=== PATIENT | male | born 1955 | race Caucasian/White ===

== ENCOUNTER 2018-04-09 13:13 | Outpatient (REF) | payer MEDICARE, MEDICAID, SELFPAY ==
[2018-04-09 21:40] LABS: Microalb ug/mg Crea 83.5 ug/mg Cr
== END 2018-04-09 13:33 ==
LOC: NCHCN 13:13
PROVIDERS: PCP Internal Medicine; Visit Provider Internal Medicine
DX: E11.9 Type 2 diabetes mellitus without complications (principal); I25.10 Atherosclerotic heart disease of native coronary artery without angina pectoris; G89.29 Other chronic pain
CPT/HCPCS: 82043; 82570

== ENCOUNTER 2018-06-25 12:33 | Outpatient (REF) | payer MEDICARE, MEDICAID, SELFPAY ==
[2018-06-25 21:52] LABS: Anion Gap 12.1 mmol/L (3-11); BUN 25 mg/dL (7-18); CO2 26.9 mmol/L (21.0-32.0); CREATININE 1.92 mg/dL (0.70-1.30); Calcium 9.7 mg/dL (8.5-10.1); Chloride 100 mmol/L (98-107); Glucose 188 mg/dL (70-100); Potassium 4.5 mmol/L (3.5-5.1); Sodium 139 mmol/L (136-145)
[2018-06-25 21:53] LABS: Hemoglobin A1C 6.9 % (4.5-6.2)
== END 2018-06-25 12:53 ==
LOC: NCHCN 12:33
PROVIDERS: PCP Internal Medicine; Visit Provider Internal Medicine
DX: E11.9 Type 2 diabetes mellitus without complications (principal)
CPT/HCPCS: 80048; 83036

== ENCOUNTER 2019-03-14 12:06 | Outpatient (REF) | payer MEDICARE, SELFPAY ==
[2019-03-14 21:58] LABS: COMMENT (LAB VIEW ONLY) 106.86 mg/dL
[2019-03-14 22:17] LABS: Microalb ug/mg Crea 185.9 ug/mg Cr
== END 2019-03-14 12:26 ==
LOC: NCHCN 12:06
PROVIDERS: PCP Internal Medicine; Visit Provider Internal Medicine
DX: E11.9 Type 2 diabetes mellitus without complications (principal)
CPT/HCPCS: 82043; 82570

== ENCOUNTER 2019-06-01 22:29 | Outpatient (REF) | payer MEDICARE, SELFPAY ==
[2019-06-01 22:41] LABS: Hemoglobin A1C 7.8 % (4.5-6.2)
[2019-06-01 22:42] LABS: Anion Gap 13.8 mmol/L (3-11); BUN 22 mg/dL (7-18); CO2 24.2 mmol/L (21.0-32.0); CREATININE 1.63 mg/dL (0.70-1.30); Calcium 8.8 mg/dL (8.5-10.1); Calculated LDL 60 mg/dL; Chloride 104 mmol/L (98-107); Cholesterol 150 mg/dL (<200); Estimated GFR 43.23 (mL/min/1.73m2); Glucose 209 mg/dL (74-106); HDL Cholesterol 31 mg/dL (40-60); Potassium 4.3 mmol/L (3.5-5.1); Sodium 142 mmol/L (136-145); Triglyceride 298 mg/dL (<150)
== END 2019-06-01 22:49 ==
LOC: NCHCN 22:29
PROVIDERS: PCP Internal Medicine; Visit Provider Internal Medicine
DX: E11.9 Type 2 diabetes mellitus without complications (principal); I25.10 Atherosclerotic heart disease of native coronary artery without angina pectoris; E78.1 Pure hyperglyceridemia
CPT/HCPCS: 80048; 80061; 83036

== ENCOUNTER 2020-02-13 12:48 | Outpatient (REF) | payer MEDICARE, SELFPAY ==
[2020-02-13 21:26] LABS: COMMENT (LAB VIEW ONLY) 139.06 mg/dL
[2020-02-13 21:27] LABS: Microalb ug/mg Crea 81.5 ug/mg Cr
== END 2020-02-13 13:08 ==
LOC: NCHCN 12:48
PROVIDERS: PCP Internal Medicine; Visit Provider Internal Medicine
DX: E11.9 Type 2 diabetes mellitus without complications (principal)
CPT/HCPCS: 82043; 82570

== ENCOUNTER 2020-04-24 10:24 | Outpatient (REF) | payer MEDICARE, SELFPAY ==
[2020-04-24 21:26] LABS: ALT 19 U/L (16-63); AST 17 U/L (15-37); Albumin 3.7 g/dL (3.4-5.0); Alkaline Phosphatase 120 U/L (46-116); Anion Gap 9.6 mmol/L (3-11); BUN 30 mg/dL (7-18); Bilirubin, Total 0.3 mg/dL (0.2-1.0); CO2 28.4 mmol/L (21.0-32.0); CREATININE 1.92 mg/dL (0.70-1.30); Calcium 8.9 mg/dL (8.5-10.1); Chloride 103 mmol/L (98-107); Estimated GFR 35.67 (mL/min/1.73m2); Glucose 204 mg/dL (74-106); Potassium 3.8 mmol/L (3.5-5.1); Sodium 141 mmol/L (136-145)
== END 2020-04-24 10:44 ==
LOC: NCHCN 10:24
PROVIDERS: PCP Internal Medicine; Visit Provider Internal Medicine
DX: I10 Essential (primary) hypertension (principal); E11.9 Type 2 diabetes mellitus without complications
CPT/HCPCS: 80053

== ENCOUNTER 2020-10-10 10:48 | Outpatient (REF) | payer MEDICARE, SELFPAY ==
[2020-10-10 13:35] LABS: Abs Immature Grans 0.03 10^3/uL (0.0-0.06); Absolute Basophil Count 0.04 10^3/uL (0.0-0.2); Absolute Eosinophil Count 0.16 10^3/uL (0.0-0.7); Absolute Lymphocyte Count 0.93 10^3/uL (1.2-3.4); Absolute Monocyte Count 0.39 10^3/uL (0.1-0.8); Absolute Neutrophil Count 3.68 10^3/uL (1.2-6.7); Basophils % 0.8; Eosinophils % 3.1; HCT 39.9 % (40.0-50.0); HGB 12.7 g/dL (13.5-17.5); Immature Grans % 0.6; Lymphocytes % 17.8; MCH 29.1 pg (27.0-33.0); MCHC 31.8 % (32.0-36.0); MCV 91.3 fL (80-95); MPV 9.6 fL (8.0-11.0); Monocytes % 7.5; Neutrophils % 70.2; Nucleated RBC 0 %; Platelet Count 214 10^3/uL (130-400); RBC 4.37 10^6/uL (4.36-5.78); RDW 12.8 % (11.8-14.1); RDW-SD 42.4 fL; WBC 5.23 10^3/uL (4.4-10.8)
[2020-10-10 13:48] LABS: ALT 25 U/L (16-63); AST 12 U/L (15-37); Albumin 3.5 g/dL (3.4-5.0); Alkaline Phosphatase 110 U/L (46-116); Anion Gap 10.2 mmol/L (3-11); BUN 38 mg/dL (7-18); Bilirubin, Total 0.2 mg/dL (0.2-1.0); CO2 25.8 mmol/L (21.0-32.0); CREATININE 2.2 mg/dL (0.70-1.30); Chloride 109 mmol/L (98-107); Estimated GFR 30.48 (mL/min/1.73m2); Glucose 283 mg/dL (74-106); Potassium 4.8 mmol/L (3.5-5.1); Sodium 145 mmol/L (136-145)
[2020-10-11 04:23] LABS: Vitamin D 25 Total 12.3 ng/mL (30-100)
[2020-10-11 10:08] LABS: Parathyroid Hormone,Intact 78 pg/mL (19-88)
== END 2020-10-10 10:49 | disposition home or self-care (01) ==
LOC: NCHCN 10:48
PROVIDERS: PCP Internal Medicine; Visit Provider Internal Medicine
DX: N18.9 Chronic kidney disease, unspecified (principal); E11.9 Type 2 diabetes mellitus without complications; I10 Essential (primary) hypertension; E55.9 Vitamin D deficiency, unspecified
CPT/HCPCS: 80053; 82306; 83970; 85025

== ENCOUNTER 2021-01-09 19:42 | Outpatient (REF) | payer MEDICARE, SELFPAY ==
[2021-01-09 22:03] LABS: COMMENT (LAB VIEW ONLY) 73.51 mg/dL
== END 2021-01-09 19:43 | disposition home or self-care (01) ==
LOC: NCHCN 19:42
PROVIDERS: PCP Internal Medicine; Visit Provider Internal Medicine
DX: E11.9 Type 2 diabetes mellitus without complications (principal)
CPT/HCPCS: 82043; 82570

== ENCOUNTER 2021-03-27 22:30 | Outpatient (REF) | payer MEDICARE, SELFPAY ==
[2021-03-27 22:34] LABS: Anion Gap 8.5 mmol/L (3-11); BUN 30 mg/dL (7-18); CO2 27.5 mmol/L (21.0-32.0); Chloride 106 mmol/L (98-107); Estimated GFR 33.91 (mL/min/1.73m2); Glucose 178 mg/dL (74-106); Potassium 4.7 mmol/L (3.5-5.1); Sodium 142 mmol/L (136-145)
[2021-03-27 22:37] LABS: Hemoglobin A1C 7.6 % (<5.7)
[2021-03-28 05:02] LABS: Vitamin D 25 Total 77.3 ng/mL (30-100)
== END 2021-03-27 22:31 | disposition home or self-care (01) ==
LOC: NCHCN 22:30
PROVIDERS: PCP Internal Medicine; Visit Provider Internal Medicine
DX: E11.9 Type 2 diabetes mellitus without complications (principal); E55.9 Vitamin D deficiency, unspecified; N18.9 Chronic kidney disease, unspecified; I10 Essential (primary) hypertension
CPT/HCPCS: 80048; 82306; 83036

== ENCOUNTER 2021-09-11 21:37 | Outpatient (REF) | payer MEDICARE, SELFPAY | END 2021-09-11 21:38 | disposition home or self-care (01) | LOC: NCHCN 21:37 | PROVIDERS: PCP Internal Medicine; Visit Provider Internal Medicine ==

== ENCOUNTER 2021-09-11 21:49 | Outpatient (REF) | payer MEDICARE, SELFPAY ==
[2021-09-11 22:07] LABS: Anion Gap 9.2 mmol/L (3-11); BUN 37 mg/dL (7-18); CO2 25.8 mmol/L (21.0-32.0); CREATININE 1.9 mg/dL (0.70-1.30); Calcium 9.3 mg/dL (8.5-10.1); Chloride 104 mmol/L (98-107); Estimated GFR 35.98 (mL/min/1.73m2); Glucose 212 mg/dL (74-106); Potassium 4.3 mmol/L (3.5-5.1); Sodium 139 mmol/L (136-145)
== END 2021-09-11 21:50 | disposition home or self-care (01) ==
LOC: NCHCN 21:49
PROVIDERS: PCP Internal Medicine; Visit Provider Internal Medicine
DX: E11.9 Type 2 diabetes mellitus without complications (principal)
CPT/HCPCS: 80048; 83036

== ENCOUNTER 2021-12-09 15:32 | Outpatient (REF) | payer MEDICARE, SELFPAY ==
[2021-12-09 20:50] LABS: COMMENT (LAB VIEW ONLY) 63.88 mg/dL; Microalb ug/mg Crea 62.1 ug/mg Cr
== END 2021-12-09 15:33 | disposition home or self-care (01) ==
LOC: NCHCN 15:32
PROVIDERS: PCP Internal Medicine; Visit Provider Internal Medicine
DX: E11.9 Type 2 diabetes mellitus without complications (principal); R03.0 Elevated blood-pressure reading, without diagnosis of hypertension; Z86.39 Personal history of other endocrine, nutritional and metabolic disease
CPT/HCPCS: 82043; 82570

== ENCOUNTER 2022-05-22 14:46 | Outpatient (REF) | payer MEDICARE, SELFPAY ==
[2022-05-22 15:50] LABS: Vitamin D 25 Total 33.1 ng/mL (30-100)
== END 2022-05-22 14:47 | disposition home or self-care (01) ==
LOC: NCHCN 14:46
PROVIDERS: PCP Internal Medicine; Visit Provider Internal Medicine
DX: E55.9 Vitamin D deficiency, unspecified (principal)
CPT/HCPCS: 82306

== ENCOUNTER 2022-05-28 15:46 | Outpatient (REF) | payer MEDICARE, SELFPAY ==
[2022-05-28 21:36] LABS: HCT 41.7 % (40.0-50.0); HGB 13.6 g/dL (13.5-17.5); MCH 29.4 pg (27.0-33.0); MCHC 32.6 % (32.0-36.0); MCV 90 fL (80-95); MPV 9.6 fL (8.0-11.0); Platelet Count 230 10^3/uL (130-400); RBC 4.62 10^6/uL (4.36-5.78); RDW 12.8 % (11.8-14.1); RDW-SD 41.9 fL; WBC 5.43 10^3/uL (4.4-10.8)
[2022-05-28 22:16] LABS: ALT 23 U/L (16-63); AST 20 U/L (15-37); Albumin 3.6 g/dL (3.4-5.0); Alkaline Phosphatase 92 U/L (46-116); Anion Gap 8.9 mmol/L (3-11); BUN 33 mg/dL (7-18); Bilirubin, Total 0.3 mg/dL (0.2-1.0); CO2 26.1 mmol/L (21.0-32.0); Calcium 9.5 mg/dL (8.5-10.1); Calculated LDL 86 mg/dL (<100); Chloride 103 mmol/L (98-107); Cholesterol 157 mg/dL (<200); Estimated GFR 36.58 (mL/min/1.73m2); Glucose 171 mg/dL (74-106); HDL Cholesterol 43 mg/dL (40-60); Potassium 4.4 mmol/L (3.5-5.1); Sodium 138 mmol/L (136-145); Total Protein 7.4 g/dL (6.4-8.2); Triglyceride 141 mg/dL (<150)
== END 2022-05-28 15:47 | disposition home or self-care (01) ==
LOC: NCHCN 15:46
PROVIDERS: PCP Internal Medicine; Visit Provider Internal Medicine
DX: E11.9 Type 2 diabetes mellitus without complications (principal); I10 Essential (primary) hypertension; E78.5 Hyperlipidemia, unspecified
CPT/HCPCS: 80053; 80061; 85027

== ENCOUNTER 2022-11-06 16:08 | Outpatient (REF) | payer MEDICARE, SELFPAY ==
[2022-11-06 20:13] LABS: Anion Gap 8.7 mmol/L (3-11); BUN 37 mg/dL (7-18); CO2 25.3 mmol/L (21.0-32.0); CREATININE 2.2 mg/dL (0.70-1.30); Calcium 9.3 mg/dL (8.5-10.1); Chloride 106 mmol/L (98-107); Estimated GFR 32.63 (mL/min/1.73m2); Glucose 174 mg/dL (74-106); Hemoglobin A1C 7.4 % (<5.7); Potassium 4.5 mmol/L (3.5-5.1); Sodium 140 mmol/L (136-145)
== END 2022-11-06 16:09 | disposition home or self-care (01) ==
LOC: NCHCN 16:08
PROVIDERS: PCP Internal Medicine; Visit Provider Internal Medicine
DX: E11.9 Type 2 diabetes mellitus without complications (principal); I10 Essential (primary) hypertension; N18.9 Chronic kidney disease, unspecified; G89.29 Other chronic pain
CPT/HCPCS: 80048; 83036

== ENCOUNTER 2022-11-13 15:21 | Outpatient (REF) | payer MEDICARE, SELFPAY ==
[2022-11-13 21:13] LABS: COMMENT (LAB VIEW ONLY) 66.65 mg/dL; Microalb ug/mg Crea 26.6 ug/mg Cr
== END 2022-11-13 15:22 | disposition home or self-care (01) ==
LOC: NCHCN 15:21
PROVIDERS: PCP Internal Medicine; Visit Provider Internal Medicine
DX: E11.9 Type 2 diabetes mellitus without complications (principal)
CPT/HCPCS: 82043; 82570

== ENCOUNTER 2023-04-20 15:38 | Outpatient (REF) | payer MEDICARE, SELFPAY ==
[2023-04-20 22:14] LABS: Anion Gap 11.1 mmol/L (3-11); BUN 29 mg/dL (7-18); CO2 23.9 mmol/L (21.0-32.0); Calcium 9.6 mg/dL (8.5-10.1); Chloride 105 mmol/L (98-107); Estimated GFR 36.36 (mL/min/1.73m2); Glucose 167 mg/dL (74-106); Potassium 4.8 mmol/L (3.5-5.1); Sodium 140 mmol/L (136-145)
[2023-04-20 22:27] LABS: Hemoglobin A1C 7.2 % (<5.7)
== END 2023-04-20 15:39 | disposition home or self-care (01) ==
LOC: NCHCN 15:38
PROVIDERS: PCP Internal Medicine; Visit Provider Internal Medicine
DX: E11.9 Type 2 diabetes mellitus without complications (principal); N18.9 Chronic kidney disease, unspecified
CPT/HCPCS: 80048; 83036

== ENCOUNTER 2023-10-08 15:21 | Outpatient (REF) | payer MEDICARE, SELFPAY ==
[2023-10-08 20:57] LABS: HCT 39.9 % (40.0-50.0); HGB 12.8 g/dL (13.5-17.5); MCH 29.4 pg (27.0-33.0); MCHC 32.1 % (32.0-36.0); MCV 92 fL (80-95); MPV 9.3 fL (8.0-11.0); Platelet Count 229 10^3/uL (130-400); RBC 4.36 10^6/uL (4.36-5.78); RDW-SD 43.8 fL; WBC 6.08 10^3/uL (4.4-10.8)
[2023-10-08 21:32] LABS: ALT 20 U/L (16-63); AST 15 U/L (15-37); Albumin 3.4 g/dL (3.4-5.0); Alkaline Phosphatase 79 U/L (46-116); Anion Gap 9.5 mmol/L (3-11); BUN 31 mg/dL (7-18); Bilirubin, Total 0.3 mg/dL (0.2-1.0); CO2 26.5 mmol/L (21.0-32.0); Calcium 8.8 mg/dL (8.5-10.1); Calculated LDL 101 mg/dL (<100); Chloride 105 mmol/L (98-107); Cholesterol 169 mg/dL (<200); Estimated GFR 36.36 (mL/min/1.73m2); Glucose 148 mg/dL (74-106); HDL Cholesterol 40 mg/dL (40-60); Potassium 4.6 mmol/L (3.5-5.1); Sodium 141 mmol/L (136-145); Triglyceride 144 mg/dL (<150)
[2023-10-08 21:57] LABS: Hemoglobin A1C 7.8 % (<5.7)
== END 2023-10-08 15:22 | disposition home or self-care (01) ==
LOC: NCHCN 15:21
PROVIDERS: PCP Internal Medicine; Visit Provider Internal Medicine
DX: E11.9 Type 2 diabetes mellitus without complications (principal); N18.9 Chronic kidney disease, unspecified; E78.5 Hyperlipidemia, unspecified
CPT/HCPCS: 80053; 80061; 85027; 83036

== ENCOUNTER 2023-10-15 15:36 | Outpatient (REF) | payer MEDICARE, SELFPAY ==
[2023-10-15 21:36] LABS: COMMENT (LAB VIEW ONLY) 52.71 mg/dL
[2023-10-15 21:37] LABS: Microalb ug/mg Crea 104.7 ug/mg Cr
== END 2023-10-15 15:37 | disposition home or self-care (01) ==
LOC: NCHCN 15:36
PROVIDERS: PCP Internal Medicine; Visit Provider Internal Medicine
DX: E11.9 Type 2 diabetes mellitus without complications (principal)
CPT/HCPCS: 82043; 82570

== ENCOUNTER 2024-06-16 19:10 | Outpatient (REF) | payer MEDICARE, SELFPAY ==
[2024-06-16 21:35] LABS: HCT 36.5 % (40.0-50.0); HGB 11.4 g/dL (13.5-17.5); MCH 28.8 pg (27.0-33.0); MCHC 31.2 % (32.0-36.0); MCV 92 fL (80-95); MPV 9.6 fL (8.0-11.0); Platelet Count 256 10^3/uL (130-400); RBC 3.96 10^6/uL (4.36-5.78); RDW 14.1 % (11.8-14.1); RDW-SD 48.2 fL; WBC 5.49 10^3/uL (4.4-10.8)
[2024-06-16 21:44] LABS: Iron 58 ug/dL (65-175); Total Iron Binding Capacity 270 ug/dL (250-450); Transferrin Sat 21 % (20-55)
[2024-06-16 21:55] LABS: COMMENT (LAB VIEW ONLY) 57.25 mg/dL; Microalb ug/mg Crea 220.4 ug/mg Cr
[2024-06-16 21:58] LABS: Anion Gap 12.4 mmol/L (3-11); BUN 46 mg/dL (7-18); CO2 24.6 mmol/L (21.0-32.0); CREATININE 2.5 mg/dL (0.70-1.30); Calcium 9.5 mg/dL (8.5-10.1); Chloride 107 mmol/L (98-107); Estimated GFR 27.64 (mL/min/1.73m2); Glucose 169 mg/dL (74-106); PHOSPHORUS 3.9 mg/dL (2.6-4.7); Potassium 4.1 mmol/L (3.5-5.1); Sodium 144 mmol/L (136-145)
[2024-06-16 22:39] LABS: Ferritin 180 ng/mL (26-388); Vitamin D 25 Total 46.2 ng/mL (30-100)
[2024-06-20 10:11] LABS: Transferrin 209 mg/dL (201-352)
== END 2024-06-16 19:11 | disposition home or self-care (01) ==
LOC: NCHCN 19:10
PROVIDERS: PCP Internal Medicine; Visit Provider Internal Medicine
DX: N18.9 Chronic kidney disease, unspecified (principal)
CPT/HCPCS: 80048; 82306; 85027; 82043; 82570; 82728; 83540; 83550; 83970; 84100; 84466

== ENCOUNTER 2024-12-02 15:19 | Outpatient (REF) | payer MEDICARE, SELFPAY ==
[2024-12-02 21:21] LABS: HCT 34.2 % (40.0-50.0); MCH 28.8 pg (27.0-33.0); MCHC 32.2 % (32.0-36.0); MCV 90 fL (80-95); MPV 9.4 fL (8.0-11.0); Platelet Count 226 10^3/uL (130-400); RBC 3.82 10^6/uL (4.36-5.78); RDW 14.2 % (11.8-14.1); RDW-SD 45.8 fL; WBC 4.74 10^3/uL (4.4-10.8)
[2024-12-02 21:45] LABS: ALT 21 U/L (16-63); AST 18 U/L (15-37); Albumin 3.7 g/dL (3.4-5.0); Alkaline Phosphatase 79 U/L (46-116); Anion Gap 7.2 mmol/L (3-11); BUN 25 mg/dL (7-18); Bilirubin, Total 0.4 mg/dL (0.2-1.0); CO2 28.8 mmol/L (21.0-32.0); CREATININE 1.9 mg/dL (0.70-1.30); Calcium 9.2 mg/dL (8.5-10.1); Calculated LDL 61 mg/dL (<100); Chloride 98 mmol/L (98-107); Cholesterol 123 mg/dL (<200); Estimated GFR 38.19 (mL/min/1.73m2); Glucose 109 mg/dL (74-106); HDL Cholesterol 47 mg/dL (>or=40); Potassium 4.2 mmol/L (3.5-5.1); Sodium 134 mmol/L (136-145); Total Protein 7.6 g/dL (6.4-8.2); Triglyceride 76 mg/dL (<150)
== END 2024-12-02 15:20 | disposition home or self-care (01) ==
LOC: NCHCN 15:19
PROVIDERS: PCP Internal Medicine; Visit Provider Internal Medicine
DX: E11.9 Type 2 diabetes mellitus without complications (principal); E78.5 Hyperlipidemia, unspecified
CPT/HCPCS: 80053; 80061; 85027; 83036